=== PATIENT | male | born 1990 | race Hispanic/Latino ===

== ENCOUNTER 2020-07-09 16:19 | Emergency (ER) | payer SELFPAY ==
[2020-07-09] MEDS ORDERED: TAMSULOSIN HCL 0.4 MG CAP.ER.24H ONE (16:40)
[2020-07-09] MEDS ORDERED: DEXAMETHASONE SOD PHOSPHATE 10MG/ML 1ML VIAL ONE (17:56)
[2020-07-09] MEDS ORDERED: KETOROLAC TROMETHAMINE 60 MG/2 ML VIAL ONE (17:56)
[2020-07-09] MEDS ORDERED: HYDROCODONE/ACETAMINOPHEN 5/325 MG TAB ONE (17:57)
[2020-07-09] MEDS ORDERED: LIDOCAINE 5% TOPICAL PATCH TP ONE (17:57)
== END 2020-07-09 18:52 | disposition home or self-care (01) ==
LOC: EDH 16:19
DX: S39.012A Strain of muscle, fascia and tendon of lower back, initial encounter (principal); X58.XXXA Exposure to other specified factors, initial encounter; Y93.89 Activity, other specified; Y92.89 Other specified places as the place of occurrence of the external cause; Y99.8 Other external cause status
CPT/HCPCS: 72100; 96372 ×2; 99284; J1100; J1885